=== PATIENT | male | born 1970 | race Caucasian/White ===

== ENCOUNTER 2021-05-13 12:55 | Emergency (ER) | payer OTHER, SELFPAY ==
--- NOTE | ~2021-05-13 | XR_ITS ---
XR foot RT min 3V DATE: 05/13/2021 13:28 INDICATION: Stubbed right fifth digit. Bruising of fourth and fifth digits. TECHNIQUE: 4 views of right foot COMPARISON: None FINDINGS: Plantar and posterior calcaneal enthesopathy without erosive change or periostitis. There is a linear oblique fracture through the proximal shaft of the proximal phalanx of the fifth di git with approximately 1 cortical width lateral displacement, minimal angulation. No other fracture or dislocation, periosteal reaction or bone destruction is detected. IMPRESSION: Fracture of proximal phalanx of fifth digit Calcaneal enthesopathy Reviewed, dictated and finalized at location [facility]
--- NOTE | 2021-05-13 12:57 | ED.LOWEXIN ---
HPI - Extremity Injury (Lower) General Chief Complaint: Extremity Injury, Lower Stated Complaint: Toe Pain Time Seen by Provider: 05/13/21 13:15 Source: patient and RN notes reviewed Mode of arrival: ambulatory Limitations: no limitations History of Present Illness HPI Narrative: 50-year-old male presents to the [facility] with complaints of right fifth toe pain. Patient states 4 days ago he kicked the corner of a door frame. Has had pain since. No bruising or swelling noted to the area. MD complaint: other (Toe pain) Related Data Home Medications Medication Instructions Recorded Confirmed No Home Medications 05/13/21 05/13/21 Allergies Allergy/AdvReac Type Severity Reaction Status Date / Time No Known Allergies Allergy Verified 05/13/21 13:16 Review of Systems Review of Systems: All systems reviewed & are unremarkable except as noted in HPI and below Constitutional: Constitutional: Reports no additional constitutional complaints and Denies chills Eyes: Eyes: Reports no additional eye complaints ENT: Reports system reviewed and no additional complaints, except as documented Cardiovascular: Cardiovascular: Reports no additional cardiovascular complaints and Denies chest pain Respiratory: Respiratory: Reports no additional respiratory complaints, Denies cough and Denies dyspnea Gastrointestinal: Gastrointestinal: Reports no additional gastrointestinal complaints, Denies abdominal pain, Denies nausea and Denies vomiting Musculoskeletal: Musculoskeletal: Reports as per HPI and Reports arthralgias (Base of right fifth toe) Integumentary/Breasts: Skin/Breast: Reports system reviewed and no additional complaints, except as docu, Denies pruritus and Denies rash Neurologic: Reports system reviewed and no additional complaints, except as documented Psychiatric: Psychiatric: Reports no additional psychiatric complaints Allergic/Immunologic: Allergic/Immunologic: Reports no additional allergic/immunologic complaints PMFSH Surgical History Surgical History (Updated 05/13/21 @ 19:28 by Johanna Dickey) No pertinent past surgical history Social History Social History (Updated 05/13/21 @ 19:29 by Johanna Dickey) Gender identity (if verbalized by the patient): Male Comments At the time of my signature, I reviewed and agree with the nursing past medical, surgical, social, and family history. There is no relevant family history pertinent to the patient complaint. Exam Const: General: healthy appearing, no acute distress and alert Nutritional Appearance: well nourished Orientation/consciousness: patient oriented x3 Limitations: no limitations HENMT: Head: normal to inspection Ears: external ears normal Eyes: Pupils: Equal, round and reactive pupils present Neck: Neck: normal visual inspection, no lymphadenopathy and no meningeal signs Chest: Chest palpation & inspection: normal inspection of the chest Resp: Effort & Inspection: normal respiratory effort Auscultation: clear to auscultation bilaterally Cardio: Rate: regular rate Rhythm: regular rhythm Back/Spine/Pelvis: Back: no CVA tenderness Skin: General skin exam: normal color Rashes: no rashes Neuro: General: patient oriented x3, moves all extremities, no meningeal signs and no focal motor deficits Cranial nerves: Yes Equal, round and reactive pupils present Speech: normal speech Gait exam (Neuro): Normal gait present Extrem: General: normal to inspection, full ROM and capillary refill normal Ankle/foot/toe images: 1. Tenderness without swelling or bruising Psych: Appearance: grossly normal and well kempt Mental Status: mental status grossly normal Affect: normal affect Attitude: cooperative Thought content: Yes Normal thought content present Course Course Emergency Course: Discharge instructions reviewed with patient, as well as provided in writing per nursing staff. The instructions also include specific and strict retur
[2021-05-13 13:12] VITALS: BP 129/77; PULSE 73; RESP 16; TEMP 36.6; O2SAT 99
== END 2021-05-13 13:55 | disposition home or self-care (01) ==
PROVIDERS: Emergency Provider Nurse Practitioner; PCP Internal Medicine
DX: S92.511A Displaced fracture of proximal phalanx of right lesser toe(s), initial encounter for closed fracture (principal); W22.09XA Striking against other stationary object, initial encounter
CPT/HCPCS: 73630; 99204; G0463